=== PATIENT | male | born 1960 | race Caucasian/White ===

== ENCOUNTER 2016-05-22 22:10 | Emergency (ER) | payer MEDICARE, MEDICAID ==
[~2016-05-22 22:10] MED LIST: CALCIUM500 MG PO; COMBIVENT RESPIM4 G1 IH; DILANTIN100 MG PO; MAALOX DPS30 ML PO; PHENOBARB32.4 MG PO; SYMBICORT160 MCG/6 IH; SYNTHROID DP0.175 MG PO; TYLENOL DPS325 MG PO
--- NOTE | 2016-05-30 07:39 | ER ---
ADMIT: 05/22/2016 RM/LOC: ER [facility] MR#: [id number] [place], [place] [id number] ZAINA CHELSEA Bullock [address] [place] [id number] Emergency Room Report SEX: M AGE: 56 : 1960 DATE: 05/22/2016 ADDENDUM: A 56-year-old male, who is brought in by EMS for being intoxicated. Apparently, the patient was at a bar this evening, passed out and would not respond. They called EMS, who with the assistance of the police were able to get him out of the bar and we are going to get him into back to ambulance, when he woke up when they were going to put an IV in, got angry, had a ground level fall. They determined they needed to bring him to the ER for evaluation. The patient is obviously intoxicated and not cooperative. At one point, he did allow us to put an IV in and give him some fluids. We did check alcohol level, which was 220. Later in his stay, he is improving with his level of intoxication insisting on leaving. At this point, I do not see a reason that he needs to stay and he is discharged home. He is still intoxicated, but being verbally abusive to staff and causing a large commotion in the ER. He was able to stand and walk on his own, and he was discharged home, police were going to arrange for him to get back to his house. DIAGNOSIS: Alcohol intoxication. Nikolai Tolliver MD/ divine JOB #: [id number] CC: Nikolai Tolliver MD, Attending Physician UNKNOWN, Family Physician
== END 2016-05-22 23:40 | disposition home or self-care (01) ==
LOC: ER 22:10
DX: F10.129 Alcohol abuse with intoxication, unspecified (principal); J45.909 Unspecified asthma, uncomplicated; Z79.899 Other long term (current) drug therapy